=== PATIENT | male | born 1975 | race Native Hawaiian/Other Pacific Islander ===

== ENCOUNTER 2022-11-03 11:48 | Emergency (ER) | payer OTHER, SELFPAY ==
[2022-11-03 12:25] VITALS: BP 134/85; PULSE 87; RESP 20; TEMP 36.8; O2SAT 98
--- NOTE | 2022-11-03 13:50 | ED_ITS ---
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 Patient notes the onset of this 7 days ago. He states whenever he tries to eat he is very nauseated and if he is able to eat it begins to feel dizzy afterwards. He has not had any vomiting any denies any diarrhea. He notes that he is hungry but again the nausea stops him from eating. He denies any fever or chills sore throat headache or belly pain. He has not had any blood in his stool diarrhea or constipation any denies any abdominal distension. He notes no unusual weight loss this past year. He is otherwise healthy not currently on any medications. He denies tobacco use or drug use. Occasionally uses alcohol. He has a family history of hypertension. Associated nausea: Yes Related Data Allergies Allergy/AdvReac Type Severity Reaction Status Date / Time No Known Drug Allergies Allergy Verified 11/03/22 12:33 Review of Systems Status of ROS: Reports: 10 or more systems reviewed and unremarkable except as noted in History and below Const: Denies: fever, chills, change in weight or fatigue Eyes: Denies: change in vision ENMT: Reports: difficulty swallowing (Because of nausea); Denies: throat pain, neck pain, hoarseness or mouth pain Cardio: Reports: lightheadedness (After eating); Denies: chest pain, swelling of feet/ankles or shortness of breath with exertion Resp: Denies: shortness of breath, cough or wheezing GI: Reports: nausea and difficulty swallowing (Because of nausea); Denies: abdominal pain, vomiting, diarrhea, constipation or blood in stool : Denies: painful urination, urinary frequency, urinary urgency or blood in urine Musculo: Denies: back pain, neck pain or extremity pain Integ/Breast: Denies: rash Neuro: Denies: headache, numbness in extremities or weakness in extremities Endo: Denies: fatigue Allergy/Immuno: Denies: wheezing [facility] Social History Smoking Status: Never smoker Do you use any of these nicotine containing products: None How often do you have a drink containing alcohol: never How many standard drinks containing alcohol do you have on a typical day: 1 or 2 How often do you have six or more drinks on one occasion: Never AUDIT-C Alcohol total score: 0 Non-prescribed substance use: denies use Exam Narrative: Exam Narrative: Patient is alert and oriented. No acute distress. External ears eyes nose. Oral cavity is moist mucous membranes. Malodorous breath. No exudate in the posterior oropharynx. Neck is supple without lymphadenopathy. Heart with regular rate and rhythm. Lungs are clear to auscultation. Abdomen soft nontender. Moving all extremities. Lower extremities without edema. Const: Vital Signs, click to edit/add: Vital Signs - 24 hr 11/03/22 12:25 Temperature 98.2 F Pulse Rate [Pulse Oximeter] 87 Respiratory Rate 20 Blood Pressure [Ri ght Upper Arm] 134/85 Pulse Oximetry 98 Oxygen Delivery Me thod Room Air Documenting provider has reviewed patient's vital signs: yes Course Course Hospital Course: Differential diagnosis includes but is not limited to pancreatitis, gastritis, esophagitis, anxiety, small-bowel obstruction , strep. At this time patient's exam is reassuring with no evidence of surgical abdomen and vital signs are within normal limits. Will check CBC, comprehensive, lipase, CRP, urinalysis as well as strep. Will place an IV give 1 L of saline as well as Zofran 4 mg IV. Reevaluation(s) Reevaluation #1: Patient noted to be improved after IV Zofran. Laboratory values reassuring. Vital Signs Vital signs: Initial Vital Signs Temperature 98.2 F 11/03/22 12:25 Temperature Source Temporal Artery Scan 11/03/22 12:25 Pulse Rate 87 11/03/22 12:25 Pulse Rhythm Regular 11/03/22 12:25 Respiratory Rate 20 11/03/22 12:25 Blood Pressure 134/85 11/03/22 12:25 Blood Pressure Mean 101 11/03/22 12:25 Pulse Oximetry 98 11/03/22 12:25 Oxygen Delivery Method Room Air 11/03/22 12:25 Vital Signs Temperature 98.2 F 11/03/22 12:25 Pulse Rate 87 11/03/22 12:25 Respiratory Rate 20 11/03/22 12:25 Blood Pressure 134/85 11/03/22 12:25 Pulse Oximetry 98 11/03/22 12:25 Oxygen Delivery Method Room Air 11/03/22 12:25 Temperature 98.2 F 11/03/22 12:25 Pulse Rate 87 11/03/22 12:25 Respiratory Rate 20 11/03/22 12:25 Blood Pressure 134/85 11/03/22 12:25 Pulse Oximetry 98 11/03/22 12:25 Oxygen Delivery Method Room Air 11/03/22 12:25 MDM - Nausea/Vomiting/Diarrhea MDM Narrative Medical decision making narrative: 1. Nausea- Of unknown etiology. Laboratory values reassuring with white count normal at 6.50, normal CRP and negative strep. At this time patient improved after IV Zofran. Patient will be discharged to home with 2 tablets of our Zofran from our stock as he does not have insurance. Have also written a prescription for Zofran through [facility] as well. Would have him follow- up with [facility] for ongoing symptoms. No history of ongoing vomiting or electrolyte imbalance at this time. Abdomen is soft and nonsurgical. Patient able to eat and drink without difficulty here. 2. Disposition -Home with family member. Return for worsening symptoms. Zofran may be used 1 tablet every 8 hours as needed for nausea. Medical Records Attestation: I reviewed the patient's medical records. Lab Data Attestation: I reviewed the patient's lab results. Labs: Lab Results 11/03/22 11/03/22 Range/Units 14:25 14:30 WBC 6.50 (4.50-11.00) K/uL RBC 5.67 (4.30-5.90) m/uL Hgb 17.3 (13.5-17.5) gm/dL Hct 49.3 (37.0-53.0) % MCV 87 (80-100) fL MCH 31 (26-34) pg MCHC 35 (32-36) gm/dL RDW Coeff of Howard 11.3 L (11.5-15.5) % Plt Count 269 (140-440) K/uL Neut % (Auto) 55.5 (42.0-72.0) % Lymph % (Auto) 34.0 (20-44) % Villalba % (Auto) 8.5 (0.0-11.0) % Eos % (Auto) 1.7 (0.0-7.0) % Baso % (Auto) 0.3 (0.0-3.0) % Neut # (Auto) 3.61 (1.7-7.0) K/uL Lymph # (Auto) 2.21 (0.90-2.90) K/uL Villalba # (Auto) 0.60 (0.00-0.90) K/UL Eos # (Auto) 0.11 (0.00-0.50) K/uL Baso # (Auto) 0.02 (0.00-0.30) K/uL Sodium 134 L (135-149) mmol/L Potassium 4.5 (3.6-5.1) mmol/L Chloride 97 (96-114) mmol/L Carbon Dioxide 27 (20-32) mmol/L BUN 20 (5-24) mg/dL Creatinine 0.9 (0.5-1.5) mg/dL Estimated GFR 106 ml/min Glucose 102 (60-115) mg/dL Calcium 9.3 (8.4-10.6) mg/dL Total Bilirubin 1.2 (0.1-1.5) mg/dL AST 34 (12-35) U/L ALT 46 (4-50) U/L Alkaline Phosphatase 86 (40-150) U/L C-Reactive Protein < 0.5 L (0.5-1.0) mg/dL Total Protein 9.1 H (6.0-8.3) g/dL Albumin 4.8 (3.3-5.0) g/dL Lipase 78 (23-300) U/L Group A Strep DNA NOT DETECTED (Not Detectd) Discharge Plan Discharge Clinical Impression: Nausea Patient Disposition: Home, Self-Care Condition: Improved Additional Instructions: Zofran may be used as needed for nausea. The tablets given to you today should melt on your tongue so that you do not have to swallow them. Wait approximately 20 minutes after using them before you eat or drink. Follow-up with [facility] for recheck. Your labs today were all normal. Return as needed. Puede jordi el medicamento Zofran/Ondansetron para nausea o vomito cada 8 horas. Estas tabletas se absorban en la boca (en el cachete o debajo de la lengua). Espera 20 minutos antes de comer or beber liquidos. Si no mejoras, erika mariza jaun de seguimiento en la clinica de [facility]. Kelly resultados del laboratorio hoy son normales. Regrese a la brigette de emergencia cuando necesita. Stand Alone Forms: [facility] Info Instructions
[2022-11-03] MEDS: ONDANSETRON 2 MG/ML inj 4 MG IVP (14:28)
[2022-11-03] MEDS: 0.9 % SODIUM CHLORIDE 1000 ml 1,000 ML IV (14:28)
[2022-11-03 14:44] LABS: Basophils Absolute Auto 0.02 K/uL (0.00-0.30); Basophils Percent Auto 0.3 % (0.0-3.0); Eosinophils Absolute Auto 0.11 K/uL (0.00-0.50); Eosinophils Percent Auto 1.7 % (0.0-7.0); Hematocrit 49.3 % (37.0-53.0); Hemoglobin* 17.3 gm/dL (13.5-17.5); Lymphocytes Absolute Auto 2.21 K/uL (0.90-2.90); Mean Corpuscular HGB Conc 35 gm/dL (32-36); Mean Corpuscular Hemoglobin 31 pg (26-34); Mean Corpuscular Volume 87 fL (80-100); Monocytes Percent Auto 8.5 % (0.0-11.0); Neutrophils Absolute Auto 3.61 K/uL (1.7-7.0); Neutrophils Percent Auto 55.5 % (42.0-72.0); Platelet Count* 269 K/uL (140-440); RDW Coefficient of Variation % 11.3 % (11.5-15.5); Red Blood Count 5.67 m/uL (4.30-5.90)
[2022-11-03 14:47] LABS: Slide Review Reflex No
[2022-11-03 14:55] LABS: Chloride* 97 mmol/L (96-114)
[2022-11-03 14:56] LABS: Albumin* 4.8 g/dL (3.3-5.0); Sodium* 134 mmol/L (135-149)
[2022-11-03 14:57] LABS: Potassium* 4.5 mmol/L (3.6-5.1)
[2022-11-03 14:59] LABS: Alkaline Phosphatase* 86 U/L (40-150); Aspartate Amino Transferase* 34 U/L (12-35); Bilirubin Total* 1.2 mg/dL (0.1-1.5); Carbon Dioxide* 27 mmol/L (20-32); Creatinine* 0.9 mg/dL (0.5-1.5); Estimated Glomerular Filt Rate 106 ml/min; Total Protein* 9.1 g/dL (6.0-8.3)
[2022-11-03 15:00] LABS: Alanine Aminotransferase* 46 U/L (4-50); Blood Urea Nitrogen* 20 mg/dL (5-24); Calcium* 9.3 mg/dL (8.4-10.6); Glucose* 102 mg/dL (60-115); Lipase* 78 U/L (23-300)
[2022-11-03 15:03] LABS: C Reactive Protein* < 0.5 mg/dL (0.5-1.0)
[2022-11-03 15:52] LABS: Strep A DNA Probe* NOT DETECTED (Not Detectd)
== END 2022-11-03 16:50 | disposition home or self-care (01) ==
PROVIDERS: Emergency Provider Family Medicine
DX: R11.0 Nausea (principal)
CPT/HCPCS: 36415; 80053; 83690; 85025; 86140; 87651; 96374; 99284; J2405; J7030

== ENCOUNTER 2022-11-12 05:23 | Emergency (ER) | payer OTHER, SELFPAY ==
[2022-11-12 05:35] VITALS: BP 127/89; PULSE 77; RESP 18; TEMP 36.1; O2SAT 100; BMI 25.9
[2022-11-12] MEDS: GI COCKTAIL (VISC LIDO/ANTACID) 30 ML PO (06:01)
[2022-11-12] MEDS: OMEPRAZOLE 20 MG CAPSULE DR PO (06:01)
--- NOTE | 2022-11-12 06:15 | ED_ITS ---
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 Reports that this happens to him frequently, at least once monthly for the last 7 years, typically at night. Denies alcohol use or intoxication. Has never been recommended to try an antacid. He did not try any medication for his symptoms prior to coming to the emergency department. Is evaluated in the emergency department 1 week ago, had full abdominal workup with all normal labs, normal CRP, lipase, etc.. This was for nausea. He is not having nausea or vomiting at this time. He was discharged on Zofran at last visit. There is no blood in his stools, bowel movements are regular. He ate a full dinner of physician vegetables last night. He denies any injury or trauma. He does not use NSAIDs. He has not tried Tylenol or other pain relieving medications or sleep aids to help with his symptoms either. No history of GI surgeries, endoscopy. Pain is located in the epigastric region, does not radiate. Constant and achy. Does not improve with food or water. Past medical history notable for hypertension hyperlipidemia. Reports his home medications are lisinopril and a cholesterol medicine that he cannot remember. Social history reviewed, denies surgeries. ROS is notable for the GI symptoms as above only, otherwise denies times 12 systems. Related Data Home Medications Medication Instructions Recorded Confirmed lisinopril 20 1 tab PO DAILY 11/12/22 11/12/22 mg-hydrochlorothiazide 12.5 mg tablet ondansetron 4 mg disintegrating 4 mg PO Q8H PRN 11/12/22 11/12/22 tablet rosuvastatin 20 mg tablet 20 mg PO DAILY 11/12/22 11/12/22 Allergies Allergy/AdvReac Type Severity Reaction Status Date / Time No Known Drug Allergies Allergy Verified 11/03/22 12:33 [facility] Social History Smoking Status: Never smoker Do you use any of these nicotine containing products: None How often do you have a drink containing alcohol: never How many standard drinks containing alcohol do you have on a typical day: 1 or 2 How often do you have six or more drinks on one occasion: Never AUDIT-C Alcohol total score: 0 Non-prescribed substance use: denies use Exam Const: Vital Signs, click to edit/add: Vital Signs - 24 hr 11/12/22 05:35 Temperature 97.0 F L Pulse Rate [Pulse Oximeter] 77 Respiratory Rate 18 Blood Pressure [Le ft Upper Arm] 127/89 Pulse Oximetry 100 Oxygen Delivery Me thod Room Air Documenting provider has reviewed patient's vital signs: yes Common normals: no apparent distress General appearance: cooperative, comfortable and well kempt Other: Appears well-nourished, well-hydrated. HENMT: Common normals: normocephalic and head/scalp atraumatic Head and scalp: normocephalic and atraumatic Face and sinus: normal facial exam Mouth: oral and palatal mucosa normal Throat: posterior oropharynx normal Eye: Common normals: conjunctivae normal General eye: normal appearance of both eyes Conjunctiva: conjunctiva(e) normal Neck & C-Spine: Common normals: full ROM and no lymphadenopathy Resp: Common normals: normal respiratory effort, no use of accessory muscles and clear to auscultation bilaterally Effort & inspection: able to speak in complete sentences Auscultation: clear to auscultation bilaterally Cardio: Common normals: regular rate, regular rhythm, S1 normal heart sound, S2 normal heart sound and no murmurs Rate: regular rate Rhythm: regular rhythm Heart sounds: S1 normal and S2 normal GI: Common normals: Normal to inspection, nondistended, normoactive bowel sounds present, soft to palpation, non-tender, no hepatosplenomegaly and no masses Palpation: soft and no hepatosplenomegaly : Common normals: no CVA tenderness Bladder/kidney exam: no CVA tenderness Back & Pelvis: Common normals: no CVA tenderness Extremity: Common normals: normal to inspection and no pedal edema Psych: Common normals: speech normal Appearance: well kempt Attitude: engaged Speech: normal speech Insight: fair Judgement: fair Skin: Common normals: no rashes or lesions noted General skin exam: no ra shes or lesions noted Course Course Hospital Course: Chronic symptoms, reassuring labs from last week. Has not failed on typical outpatient medications. No red flags like weight loss, blood in stools, trauma or injury. Vitals are stable. I recommended a trial of symptomatic control only. Will be given omeprazole 20 mg x 1 and Maalox. We do not have viscous lidocaine for a GI cocktail. Will re-evaluate after this treatment. Suspect he would benefit from 6 weeks of PPI or H2 ha therapy and counseling on avoiding alcohol and carbonated beverages. Reevaluation(s) Time of Reevaluation #1: 06:53 Reevaluation #1: Patient reports mild to moderate improvement in symptoms after the Maalox and omeprazole. Repeat examination is stable. I recommend discharge, outpatient trial of omeprazole. He does admit to drinking 2 beers last night as he does regularly. Encouraged alcohol cessation for 6 weeks while he is taking the omeprazole. Follow-up for endoscopy if symptoms have not resolved. Vital Signs Vital signs: Initial Vital Signs Temperature 97.0 F L 11/12/22 05:35 Temperature Source Temporal Artery Scan 11/12/22 05:35 Pulse Rate 77 11/12/22 05:35 Respiratory Rate 18 11/12/22 05:35 Blood Pressure 127/89 11/12/22 05:35 Blood Pressure Mean 101 11/12/22 05:35 Pulse Oximetry 100 11/12/22 05:35 Oxygen Delivery Method Room Air 11/12/22 05:35 Vital Signs Temperature 97.0 F L 11/12/22 05:35 Pulse Rate 77 11/12/22 05:35 Respiratory Rate 18 11/12/22 05:35 Blood Pressure 127/89 11/12/22 05:35 Pulse Oximetry 100 11/12/22 05:35 Oxygen Delivery Method Room Air 11/12/22 05:35 Temperature 97.0 F L 11/12/22 05:35 Pulse Rate 77 11/12/22 05:35 Respiratory Rate 18 11/12/22 05:35 Blood Pressure 127/89 11/12/22 05:35 Pulse Oximetry 100 11/12/22 05:35 Oxygen Delivery Method Room Air 11/12/22 05:35 Discharge Plan Discharge Clinical Impression: Gastritis Patient Disposition: Home w/ Parent or Adult Instructions: Gastritis (DC) Additional Instructions: Your pain is most likely from gastritis, a common chronic inflammation of the stomach lining. This happens more commonly as we age. For most people it will improve markedly if you discontinue all alcohol and carbonated beverages for 6 weeks. I would also like to start you on a stomach acid medicine that will help your stomach heal. He will take omeprazole 20 mg once daily. This is available [id number]. The best time to take this is 30 minutes before your evening meal. Most people notice marked improvement within a couple of days. It is important that you take the medicine consistently for 6 weeks and avoid alcohol. If at the end of the 6 weeks, you have not noticed any improvement, I would like for you to make a follow-up with her primary care provider to discuss an endoscopy. This is a procedure where we look into your stomach with a camera. The medicine is successful almost all of the time, endoscopy is very rarely necessary. Come into the emergency department if you have severe vomiting, blood in your stools or are so weak that you cannot ambulate. It is okay to take Tylenol 1000 mg every 6 hours as needed for the pain. The pain is almost always worse at night. It is okay to use Tylenol p.m. and or melatonin to help you sleep if the pain is bothersome. Lo m?s probable es que latham dolor se deba a la gastritis, mariza inflamaci?n cr?ana luisa com?n del revestimiento del est?gulshan. Martelle sucede m?s com?nmente a medida que envejecemos. Para la mayor?a de las personas, mejorar? notablemente si suspende todas las bebidas alcoh?licas y carbonatadas keenan 6 semanas. Tambi?n me gustar?a comenzar con un medicamento para el ?cido estomacal que ayudar? a que latham est?gulshan sane. Parag? omeprazol 20 mg mariza vez al d?a. El mejor momento para parag esto es 30 minutos antes de la financial assistant. La mayor?a de las personas notan mariza marcada mejor?a en un par de d?as. Es importante que tome el medicamento constantemente keenan 6 semanas y evite el alcohol. Si al final de las 6 semanas no streeter notado ninguna mejora, me gustar?a que hiciera un seguimiento con latham proveedor de atenci?n primaria para hablar sobre mariza endoscopia. Kristal es un procedimiento en el que observamos latham est?gulshan con mariza c?silas. El medicamento tiene ?xito vanessa todo el tiempo, la endoscopia kasi vez es necesaria. Vaya al departamento de emergencias si tiene v?mitos intensos, sanju en las heces o si est? mason d?john que no puede caminar.Est? ras parag Tylenol 1000 mg cada 6 horas seg?n sea necesario para el dolor. El dolor vanessa siempre es peor por la noche. Est? ras usar Tylenol p.m. y melatonina para ayudarlo a dormir si el dolor es molesto. Activity Level: No Restrictions Discharge Diet: Regular Prescriptions: No Action lisinopril-hydrochlorothiazide 20-12.5 mg tablet 1 tab PO DAILY ondansetron 4 mg tablet,disintegrating 4 mg PO Q8H PRN rosuvastatin 20 mg tablet 20 mg PO DAILY Follow Up/Referrals: Provider,Not a Local [Primary Care Provider] - Stand Alone Forms: [employer] Info Instructions
--- NOTE | 2022-11-12 06:33 | ED.NURSE ---
Reassessed patient at this time. He reports the pain is so-so. Daughter remains at bedside.
[2022-11-12] MEDS: ACETAMINOPHEN 500 MG TABLET 1000 MG PO (06:56)
== END 2022-11-12 07:02 | disposition home or self-care (01) ==
PROVIDERS: Emergency Provider Family Medicine
DX: K29.70 Gastritis, unspecified, without bleeding (principal)
CPT/HCPCS: 99283; A9270